=== PATIENT | female | born 1945 | race Caucasian/White ===

== ENCOUNTER 2025-04-03 08:39 | Emergency (ER) | payer BC, MEDICARE, OTHER ==
[~2025-04-03] VITALS: Ht 167.6 cm; Wt 63.0 kg
[2025-04-03 08:42] VITALS: O2SAT 96
[2025-04-03] MEDS: LIDOCAINE 5% PATCH TOP SCH (09:08)
[2025-04-03] MEDS ORDERED: HYDR-4009 MT (11:45)
[2025-04-03] MEDS ORDERED: BACLOFEN 20MG TABLET PO ONE (12:00)
[2025-04-03] MEDS: BACLOFEN 10MG TABLET PO NR (12:39)
[2025-04-03] MEDS ORDERED: BACL20TA MT (13:23)
[2025-04-03 13:34] VITALS: BP 121/80; PULSE 85; RESP 22; TEMP 36.8; O2SAT 96
== END 2025-04-03 13:48 | disposition home or self-care (01) ==
LOC: ER 08:39
DX: G89.29 Other chronic pain (principal); M54.50 Low back pain, unspecified; F11.23 Opioid dependence with withdrawal; I10 Essential (primary) hypertension; Z79.899 Other long term (current) drug therapy
CPT/HCPCS: 99283